=== PATIENT | male | born 1960 | race African-American/Black ===

== ENCOUNTER 2016-07-23 09:39 | Emergency (ER) | payer MEDICARE, OTHER ==
[~2016-07-23 09:39] MED LIST: ALBUTEROL17 GM INH; ANTIVERT PO; AUGMENTIN875 MG PO; DILANTIN; DILANTIN PO; FLONASE16 GM; KETOPROFEN PO; MEDI-MECLIZINE25 M1 PO; PREDNISONE PO; TYLENOL #3 PO; VIBRAMYCIN100 M1 PO; WALGREENS; ZITHROMAX PO; ZITHROMAX1 G/PKT PO
== END 2016-07-23 09:50 | disposition home or self-care (01) ==
LOC: CED 09:39
DX: S29.011A Strain of muscle and tendon of front wall of thorax, initial encounter (principal); R05 Cough; G40.909 Epilepsy, unspecified, not intractable, without status epilepticus; X58.XXXA Exposure to other specified factors, initial encounter; Y92.9 Unspecified place or not applicable
CPT/HCPCS: 96372; 99283; J1885

== ENCOUNTER 2016-09-19 09:01 | Emergency (ER) | payer MEDICARE, OTHER ==
[2016-09-19 08:30] LABS: URINE SOURCE CLEAN CATCH
[2016-09-19 08:33] LABS: URINE APPEARANCE CLEAR; URINE BILIRUBIN NEG (NEG); URINE BLOOD NEG (NEG); URINE COLOR YELLOW; URINE GLUCOSE NEG (NEG); URINE KETONE NEG (NEG); URINE LEUKOCYTE ESTERASE TRACE (NEG); URINE NITRATE NEG (NEG); URINE PROTEIN NEG (NEG); URINE SPECIFIC GRAVITY 1.025 (1.003-1.035)
[2016-09-19 08:36] LABS: CULTURE INDICATED? YES; URBCS1 AUWI 0-2 /[HPF] (0-2); URINE BACTERIA AUWI NEG (NEGATIVE); URINE SQUAMOUS EPITHELIAL CELL NONE SEEN /[HPF]
== END 2016-09-19 09:18 | disposition home or self-care (01) ==
LOC: CED 09:01
PROVIDERS: Emergency Medicine
DX: N39.0 Urinary tract infection, site not specified (principal)
CPT/HCPCS: 81003; 87086; 99284

== ENCOUNTER 2016-10-16 12:16 | Emergency (ER) | payer MEDICARE, OTHER | END 2016-10-16 14:00 | disposition home or self-care (01) | LOC: CED 12:16 | DX: S81.802A Unspecified open wound, left lower leg, initial encounter (principal); Z23 Encounter for immunization; W22.8XXA Striking against or struck by other objects, initial encounter; Y92.009 Unspecified place in unspecified non-institutional (private) residence as the place of occurrence of the external cause | CPT/HCPCS: 90471; 90715; 99283 ==

== ENCOUNTER 2017-01-20 20:58 | Emergency (ER) | payer MEDICARE, OTHER ==
[~2017-01-20] VITALS: Ht 175.3 cm; Wt 115.2 kg
--- NOTE | ~2017-01-20 | EKG ---
PATIENT: DOMO POP UNIT #: [id number] Ventricular Rate: 88 BPM Atrial Rate: 88 BPM P-R Interval: 160 ms QRS Duration: 78 ms Q-T Interval: 338 ms QTC Calculation(Bezet): 408 ms P Reddell: 48 degrees Calculated R Reddell: 17 degrees Calculated T Reddell: 24 degrees Diagnosis Line: Normal sinus rhythm Diagnosis Line: Normal ECG Diagnosis Line: When compared with ECG of 17-JUN-2011 14:27, Diagnosis Line: Vent. rate has increased BY 32 BPM Diagnosis Line: Confirmed by ZIGGY BENÍTEZ MD ([id number]) on Diagnosis Line: 01/22/2017 4:54:44 PM INTERPRETING MD: CHAZ
--- NOTE | ~2017-01-20 | CR63 ---
[facility] A Service of [facility] & [facility] RADIOLOGY TEXT RESULTS PATIENT: DOMO POP LOCATION: [facility] : 64 UNIT #: [id number] AGE: [address]: Eloy Guaman MD SEX: M ORDER DR: [id number] [facility] [address]. [place], [place] [address] [id number] E MR#: [id number] Acc #: [id number] NAME: DOMO POP : 1960 SEX: M STUDY DATE/TIME: 01/20/2017 23:46 UNIT: [facility] ROOM: STUDY DESCRIPTION: CR Chest 2 View Attending Physician: Eloy Guaman M.D. Ordering Physician: Eloy Guaman M.D. Primary Care Physician: [facility] MEDICAL IMAGING REPORT This report is preliminary unless electronic signature is present EXAM Two-view chest. INDICATIONS Shortness of air and cough since . PROCEDURE Frontal and lateral views of the chest. COMPARISON 06/17/2011 FINDINGS Heart size is normal. No dense consolidation pleural fluid or pneumothorax. IMPRESSION No active process. Dictated by... Addison Desouza M.D. THIS IS AN ELECTRONICALLY VERIFIED REPORT Addison Desouza M.D. at 01/21/2017 10:01 PM Romeo TD: 01/21/2017 19:01 JOB #: [id number] MEDICAL IMAGING REPORT Page 1 of 1 COPY
[2017-01-20 22:13] LABS: POC - CKMB 1.7 ng/mL (0.0-7.9); POC - TROPONIN <0.05 ng/mL (<=0.05)
[2017-01-20 22:30] LABS: BASOPHIL# 0.1 X10e3 (0-0.3); BASOPHIL% 0.7 % (0-2.5); DIFF IND NO; EOSINOPHIL# 0.3 X10e3 (0-0.7); EOSINOPHIL% 3.2 % (0.0-7.0); HEMATOCRIT 39.5 % (38.0-50.0); HEMOGLOBIN 13.5 gm/dL (13.0-16.0); LYMPHOCYTE# 2.9 X10e3 (1.0-3.5); LYMPHOCYTE% 36.9 % (17.0-45.0); MEAN CELL VOLUME 87.2 FL (83-96); MEAN CORPUSCULAR HEMOGLOBIN 29.7 PG (28-34); MEAN CORPUSCULAR HGB CONC 34.1 g/dL (30-36); MEAN PLATELET VOLUME 8.8 FL (6.5-11.5); MONOCYTE# 0.7 X10e3 (0-1.0); MONOCYTE% 8.8 % (3.0-12.0); NEUTROPHIL% 50.4 % (40-75); PLATELET COUNT 189 X10e3 (140-420); RED BLOOD COUNT 4.53 X10e (3.90-5.60); RED CELL DISTRIBUTION WIDTH 13.1 % (11.0-15.5)
[2017-01-20 22:53] LABS: CALCIUM SERUM 8.9 mg/dL (8.4-10.2); CREATININE SERUM 1.2 mg/dL (0.6-1.4); POTASSIUM 3.7 mmol/L (3.5-5.1)
[2017-01-20 23:46] LABS: POC - CKMB 1.5 ng/mL (0.0-7.9); POC - TROPONIN <0.05 ng/mL (<=0.05)
== END 2017-01-21 01:22 | disposition home or self-care (01) ==
LOC: CED 20:58
PROVIDERS: Emergency Medicine
DX: J40 Bronchitis, not specified as acute or chronic (principal); Z87.891 Personal history of nicotine dependence
CPT/HCPCS: 36415; 71020; 80048; 82553; 84484; 85025; 85379; 93005; 99284